=== PATIENT | female | born 1985 | race Caucasian/White ===

== ENCOUNTER 2019-01-12 11:20 | Emergency (ER) | payer SELFPAY ==
[2019-01-12 11:43] VITALS: BP 141/93; PULSE 86; TEMP 98.4; BMI 19.8
--- NOTE | 2019-01-12 11:56 | PDOC ---
History of Present Illness - General Chief Complaint: Pain, Acute Stated Complaint: ABD PAIN Time Seen by Provider: 01/12/19 11:55 History Source: Patient - History of Present Illness Initial Comments: 01/12/19 11:58 The patient is a 33 year old female at a self reported 5 weeks who presents to our ED c/o B/L LQ pain. Pain is cramping (similar to menstrual cramps), constant with no identifiable triggering or relieving factors. Endorses increased urgency/frequency without dysuria/hematuria. States she had a positive urine yesterday. Denies any vaginal bleeding. LMP was mid December. The patient denies chest pain, shortness of breath, diarrhea/constipation, fevers/chills, headache, sore throat, numbness/tingling. As per EMR, patient has not been evaluated in our ED on prior occasion. Past History - Past Medical History Allergies/Adverse Reactions: Allergies Allergy/AdvReac Type Severity Reaction Status Date / Time No Known Allergies Allergy Verified 01/12/19 11:43 Asthma: Yes COPD: No - Immunization History Immunization Up to Date: No - Suicide/Smoking/Psychosocial Hx Smoking History: Never smoked Have you smoked in the past 12 months: No Information on smoking cessation initiated: No Hx Alcohol Use: No Drug/Substance Use Hx: No Review of Systems - Review of Systems Constitutional: No: Chills, Fever HEENTM: No: Recent change in vision Respiratory: No: Cough, Shortness of Breath Cardiac (ROS): No: Chest Pain, Lightheadedness, Palpitations, Syncope ABD/GI: Yes: Abdominal cramping. No: Constipated, Diarrhea, Nausea, Vomiting : Yes: Frequency, Urgency. No: Burning, Dysuria *Physical Exam - Vital Signs Last Vital Signs Temp Pulse Resp BP Pulse Ox 98.4 F 86 18 141/93 100 01/12/19 11:41 01/12/19 11:41 01/12/19 11:41 01/12/19 11:41 01/12/19 11:41 - Physical Exam General Appearance: Yes: Nourished, Appropriately Dressed HEENT: positive: Normal Voice, Hearing Grossly Normal Neck: positive: Trachea midline, Supple Cardiovascular: positive: S1, S2. negative: Edema, JVD Female Pelvic Exam: positive: other (CMT, with small area of erythema on R anterior cervix, white discharge; no blood in vaginal vault) Gastrointestinal/Abdominal: positive: Normal Bowel Sounds, Soft, Other (B/L TTP w/o peritoneal signs) Extremity: positive: Normal Capillary Refill, Normal Inspection Integumentary: positive: Normal Color, Dry, Warm Neurologic: positive: Fully Oriented, Alert ED Treatment Course - LABORATORY CBC & Chemistry Diagram: 01/12/19 12:30 01/12/19 12:30 Medical Decision Making - Medical Decision Making 01/12/19 13:15 33 year old female with B/L LQ abdominal pain. H/o recent postive urine 01/12/19 14:31 Bedside pelvic significant for milky discharge and CMT - will prophylactically treat Serum HCG negative UA shows 1+ leukocyte esterase - diff pending 01/12/19 16:20 UA shows normal WBC Patient reassessed @ bedside, tolerating PO intake 01/12/19 17:35 Pelvic U/S shows small amount of fluid in cul de sac, anterverted uterus Patient ambulatory, improved. Will discharge home with return precautions, PMD follow-up and referral to [facility] for fpc control. *DC/Admit/Observation/Transfer Diagnosis at time of Disposition: Pelvic pain - Discharge Dispostion Disposition: HOME Condition at time of disposition: Good Decision to Admit order: No - Referrals - Patient Instructions Additional Instructions: You were evaluated today pelvic pain. We have treated you for gonorrhea and chlamydia and your official test results will be available in 72 hours. You can call the number provided in your discharge instructions for your results. You HIV and tests were negative. Please follow up with your primary care doctor in the next 3 days, your care is not complete until you are evaluated by your primary care doctor. Please also call [facility] or see your primary care doctor to establish [employer] control. [facility] is at [address] [place] [address]. Their phone number is Return to the Emergency Department for any new/worsening/concerning symptoms including increased pain, vaginal bleeding. - Post Discharge Activity
--- NOTE | 2019-01-12 13:02 | PDOC ---
Attending Attestation - HPI HPI: 01/12/19 14:06 The patient is a 33 year old female, with no significant past medical history, who presents to the emergency department with, 1 week of cramping, constant bilateral lower quadrant worsening with movement with urgency and frequency. Patient endorses taking a test yesterday which was positive. Her last STI testing 9 months ago, sexually active with one partner. She denies any recent vaginal bleeding, dysuria, or hematuria. She denies recent fevers, chills, headache or dizziness. She denies recent nausea, vomit, diarrhea or constipation. She denies recent chest pain or shortness of breath. Allergies: NKDA <JadadaMora [email or web address] - Last Filed: 01/12/19 14:35> - Resident Resident Name: Estrella Ferrara - ED Attending Attestation I have performed the following: I have examined & evaluated the patient, The case was reviewed & discussed with the resident, I agree w/resident's findings & plan, Exceptions are as noted - Physicial Exam PE: 01/12/19 17:42 GENERAL: The patient is awake, alert, and fully oriented, Nontoxic - in no acute distress. ABDOMEN: Soft, nontender, normoactive bowel sounds. No guarding, no rebound. . No CVA tenderness - Medical Decision Making 01/12/19 14:01 33y F presents with complaint of b/l lower abd pain x 1 week that is crampy in nature, constant, worse with movement no associated n/v, changes in bowel habits, urination, vaginal bleeding +urinary urgency/frequency without dysuria/hematuria urine test + requesting test and STD testing 01/12/19 17:43 The patient's urine test is negative, as the patient has implanted several times we'll recommend she follow up with [facility] or [facility] for IUD. We'll discharge with PMD follow-up Return precautions were discussed I discussed the physical exam findings, ancillary test results and final diagnoses with the patient. I answered all of the patient's questions. The patient was satisfied with the care received and felt comfortable with the discharge plan and treatment plan. The patient will call their primary care physician within 24 hours to arrange follow-up and will return to the Emergency Department with any new, persistent or worsening symptoms. <Melo Singh - Last Filed: 01/12/19 17:44> Attestations - Attestations 01/12/19 14:07 Documentation prepared by Tuyet Schultz, acting as medical attendant for Melo Singh MD. <Tuyet Schultz - Last Filed: 01/12/19 14:35>
[2019-01-12 13:29] LABS: BASO % 0.3 % (0-2.0); EOS % 0.2 % (0-4.5); HEMATOCRIT 42.4 % (32.4-45.2); LYMPH % 20.7 % (8-40); MCH 28.8 pg (25.7-33.7); MCHC 32.9 g/dl (32.0-36.0); MEAN CELL VOLUME 87.5 fl (80-96); MEAN PLT VOLUME 7.4 fl (7.5-11.1); MONO % 4.7 % (3.8-10.2); NEUT % 74.1 % (42.8-82.8); PLATELET COUNT 276 K/MM3 (134-434); RBC 4.85 M/mm3 (3.60-5.2); RDW 13.7 % (11.6-15.6); WHITE BLOOD COUNT 8.2 K/mm3 (4.0-10.0)
[2019-01-12] MEDS ORDERED: ACETAMINOPHEN 1000 MG/100 ML VIAL (NON FORMULARY) IVPB ONE (14:01)
[2019-01-12] MEDS ORDERED: ACETAMINOPHEN INJECTION 100 ML IVPB ONE (14:05)
[2019-01-12 14:07] LABS: PH,URINE 5.5 (5.0-8.0); URINE APPEARANCE Clear; URINE BILIRUBIN Negative (NEGATIVE); URINE COLOR Yellow; URINE GLUCOSE (UA) Negative (NEGATIVE); URINE KETONE 1+ (NEGATIVE); URINE LEUK ESTERASE 1+ (NEGATIVE); URINE NITRITE Negative (NEGATIVE); URINE PROTEIN Negative (NEGATIVE); URINE UROBILINOGEN 0.2 mg/dL (0.2-1.0)
[2019-01-12 14:11] LABS: ALBUMIN 4.3 g/dl (3.4-5.0); ALK PHOS 66 U/L (45-117); ANION GAP 4 MMOL/L (8-16); BILIRUBIN,TOTAL 0.6 mg/dL (0.2-1); BLOOD UREA NITROGEN 12 mg/dL (7-18); CALCIUM 9.4 mg/dL (8.5-10.1); CHLORIDE 105 mmol/L (98-107); CO2 28 mmol/L (21-32); CREATININE 0.7 mg/dL (0.55-1.3); GLUCOSE,RANDOM 90 mg/dL (74-106); LIPASE 165 U/L (73-393); POTASSIUM 4.3 mmol/L (3.5-5.1); SGOT/AST 14 U/L (15-37); SGPT/ALT 18 U/L (13-61); SODIUM 137 mmol/L (136-145); TOT PROT 7.9 g/dl (6.4-8.2)
[2019-01-12 14:40] LABS: EPI CELLS FEW /HPF; URINE BACTERIA FEW /hpf (NEGATIVE); URINE RBC 0-2 /hpf (0-4)
[2019-01-12] MEDS ORDERED: AZITHROMYCIN 500 MG TABLET PO ONE (14:45)
[2019-01-12] MEDS ORDERED: LIDOCAINE HCL 1%, 10 MG/ML (20ML VIAL) ONE (16:15)
[2019-01-12] MEDS ORDERED: cefTRIAXone SODIUM 1 GM VIAL ONE (16:16)
[2019-01-12] MEDS ORDERED: AZITHROMYCIN 250 MG TABLET ONE (16:16)
== END 2019-01-12 18:12 | disposition home or self-care (01) ==
LOC: JER 11:20
PROC: 3E033NZ Introduction of Analgesics, Hypnotics, Sedatives into Peripheral Vein, Percutaneous Approach (ICD-10-PCS; principal; 2019-01-12)
PROC: 3E02329 Introduction of Other Anti-infective into Muscle, Percutaneous Approach (ICD-10-PCS; 2019-01-12)
DX: O26.891 Other specified pregnancy related conditions, first trimester (principal); Z3A.01 Less than 8 weeks gestation of pregnancy; R10.2 Pelvic and perineal pain
CPT/HCPCS: 36415; 76856-TC; 80053; 81003; 83605; 83690; 84702; 84703; 85025; 86850; 86900; 86901; 87086; 87389; 87491; 87591; 99283-25; J0131